=== PATIENT | female | born 1990 | race American Indian/Alaskan Native ===

== ENCOUNTER 2020-04-02 11:16 | Emergency (ER) | payer SELFPAY ==
--- NOTE | 2020-04-02 11:47 | Emergency Department Report ---
Blank Doc - Documentation Documentation: 29-year-old female that presents with abdominal pain with nausea vomiting. 1- This initial assessment/diagnostic orders/clinical plan/ treatment(s) is/are subject to change based on pt's health status, clinical progression and re- assessment by fellow clinical providers in the ED. Further treatment and workup at subsequent clinical provers discretion. Patient/guardians urged not to elope from ED as their condition may be serious if not clinically assessed and managed. 2-labs 3-UA
[2020-04-02 12:45] LABS: Hematocrit 35.8 % (30.3-42.9); Hemoglobin 12.5 gm/dl (10.1-14.3); Mean Corpuscular HGB Conc 35 % (30-34); Mean Corpuscular Volume 92 fl (79-97); Platelet Count 288 K/mm3 (140-440); Red Blood Count 3.89 M/mm3 (3.65-5.03); Red Cell Distribution Width 15.2 % (13.2-15.2)
[2020-04-02 13:07] LABS: Basophils % (Auto) 0.3 % (0.0-1.8); Eosinophils % (Auto) 0.3 % (0.0-4.3); Lymphocytes # (Auto) 1.1 K/mm3 (1.2-5.4); Lymphocytes % (Auto) 12.4 % (13.4-35.0); Monocytes # (Auto) 0.8 K/mm3 (0.0-0.8); Monocytes % (Auto) 9.4 % (0.0-7.3)
[2020-04-02 13:09] LABS: Alanine Aminotransferase 36 units/L (7-56); Albumin 4.5 g/dL (3.9-5); BUN/Creatinine Ratio 10; Blood Urea Nitrogen 8 mg/dL (7-17); Calcium 9.6 mg/dL (8.4-10.2); Hemolysis Index 0
[2020-04-02] MEDS ORDERED: MORPHINE 4 MG/1 ML INJ IV ONE (16:21)
[2020-04-02] MEDS ORDERED: SODIUM CHLORIDE 0.9% 1000 ML 1,000 ML IV ONE (16:21)
[2020-04-02] MEDS ORDERED: ONDANSETRON 4 MG/2 ML INJ IV ONE (16:23)
--- NOTE | 2020-04-02 16:24 | Emergency Department Report ---
ED General Adult HPI - General Chief complaint: Abdominal Pain Stated complaint: RT SIDED PAIN PUI?: No Time Seen by Provider: 04/02/20 11:46 Source: patient, RN notes reviewed Mode of arrival: Ambulatory Limitations: No Limitations - History of Present Illness Initial comments: The patient was evaluated in the emergency department for symptoms described in the history of present illness. He/she was evaluated in the context of the global COVID-19 pandemic, which necessitated consideration that the patient might be at risk for infection with the virus that causes COVID-19. Institutional protocols and algorithms that pertain to the evaluation of patients at risk for COVID-19 are in a state of rapid change based on inform ation released by regulatory bodies including the CDC and federal and state organizations. These policies and algorithms were followed during the patient's care in the emergency department. Please note that these policies, procedures and recommendations changed on a rapid basis. This is a pleasant 29-year-old female. She is not known to myself previously. She is not . Reports distant history of trichomoniasis, discovered incidentally. She presents to the ER today with a complaint of nontraumatic right lower quadrant pain, that started within the past day to day and a half. It does not radiate anywhere. It increases with palpation, decreases with rest, position, and ibuprofen. She has no headache, neck pain, chest pain, shortness of breath, urinary symptoms, gynecologic discharge, she reported nausea and vomiting to the nurse practitioner, to me, she denies nausea and vomiting. She has no fevers or chills. No loss of taste or smell. She is never had pain like this before -: Gradual, days(s) Location: abdomen Radiation: non-radiation Quality: aching Consistency: constant Improves with: medication, rest Worsens with: movement - Related Data Previous Rx's Medication Instructions Recorded Last Taken Type Acetaminophen [Non-Aspirin Extra 500 mg PO Q6HR PRN #30 tablet 04/02/20 Unknown Rx Strength] Ibuprofen [Motrin] 600 mg PO Q8H PRN #30 tablet 04/02/20 Unknown Rx Ondansetron [Zofran Odt] 4 mg PO Q8HR PRN #20 tab.rapdis 04/02/20 Unknown Rx Allergies Allergy/AdvReac Type Severity Reaction Status Date / Time No Known Allergies Allergy Unverified 04/02/20 11:30 ED Review of Systems ROS: Stated complaint: RT SIDED PAIN Other details as noted in HPI Constitutional: denies: fever Eyes: denies: eye discharge ENT: denies: epistaxis Respiratory: denies: cough Cardiovascular: denies: chest pain Genitourinary: denies: dysuria Musculoskeletal: denies: myalgia Neurological: denies: weakness Hematological/Lymphatic: denies: easy bleeding ED Past Medical Hx - Past Medical History Previous Medical History?: No - Surgical History Past Surgical History?: No - Social History Smoking Status: Never Smoker Substance Use Type: None - Medications Home Medications: Home Medications Medication Instructions Recorded Confirmed Last Taken Type Acetaminophen [Non-Aspirin Extra 500 mg PO Q6HR PRN #30 tablet 04/02/20 Unknown Rx Strength] Ibuprofen [Motrin] 600 mg PO Q8H PRN #30 tablet 04/02/20 Unknown Rx Ondansetron [Zofran Odt] 4 mg PO Q8HR PRN #20 tab.rapdis 04/02/20 Unknown Rx ED Physical Exam - General Limitations: No Limitations General appearance: alert, in no apparent distress - Head Head exam: Present: atraumatic, normocephalic - Eye Eye exam: Present: normal appearance, EOMI. Absent: nystagmus - ENT ENT exam: Present: normal exam, normal orophraynx, mucous membranes moist, n ormal external ear exam - Neck Neck exam: Present: normal inspection, full ROM. Absent: tenderness, meningismus - Respiratory Respiratory exam: Present: normal lung sounds bilaterally. Absent: respiratory distress, wheezes, rales, rhonchi, stridor, decreased breath sounds - Cardiovascular Cardiovascular Exam: Present: regular rate, normal rhythm, normal heart sounds. Absent: bradycardia, tachycardia, irregular rhythm, systolic murmur, diastolic murmur, rubs, gallop - GI/Abdominal GI/Abdominal exam: Present: soft, tenderness (There is right lower quadrant tenderness to deep palpation), normal bowel sounds. Absent: distended, guarding , rebound, rigid, pulsatile mass - External exam: Present: normal external exam, other (Chaperoned by nurse Garth Tapia). Absent: bleeding Speculum exam: Present: normal speculum exam. Absent: cervical discharge, vaginal bleeding Bi-manual exam: Present: normal bi-manual exam. Absent: cervical motion tendernes, adnexal tenderness, adnexal mass, uterine enlargement, uterine tenderness - Extremities Exam Extremities exam: Present: normal inspection, full ROM, other (2+ pulses noted in the bilateral upper and lower extremities. There is no palpable cord. n egative Homans sign. Muscular compartments are soft. The pelvis is stable.). Absent: pedal edema, calf tenderness - Back Exam Back exam: Present: normal inspection, full ROM. Absent: tenderness, CVA tenderness (R), CVA tenderness (L), paraspinal tenderness, vertebral tenderness - Neurological Exam Neurological exam: Present: alert, oriented X3, normal gait, other (No facial droop. Tongue midline. Extraocular movements intact bilaterally. Facial sensation intact to light touch in V1, V2, V3 distribution bilaterally. 5 and a 5 strength in 4 extremities. Sensation intact to light touch in 4 extremities.). Absent: motor sensory deficit - Psychiatric Psychiatric exam: Present: normal affect, normal mood - Skin Skin exam: Present: warm, dry, intact, normal color. Absent: rash ED Course Vital Signs 04/02/20 11:30 Temperature 98.5 F Pulse Rate 96 H Respiratory 18 Rate Blood Pressure 148/104 O2 Sat by Pulse 98 Oximetry - Reevaluation(s) Reevaluation #1: 04/02/20 17:04 Differential diagnosis, including but not limited to: Renal colic, appendicitis, pelvic inflammatory disease, ovarian cyst, urinary tract infection, colitis, diverticulitis Assessment and plan: 29-year-old female with right lower quadrant pain and ten derness. She is otherwise afebrile with reassuring vital signs. Laboratory studies reviewed and appreciated. Urinalysis pending at this time We will treat the patient's pain. Perform gynecologic examination. Obtain CT scan of the abdomen pelvis to evaluate for appendicitis, renal colic, and pelvic ultrasound to assess for ovarian cyst/torsion. We will also perform a gynecologic examination. Reassess after initial data points. Have discussed this plan of care with the patient. She verbalized understanding. She is amenable to this plan of care. Reevaluation #2: 04/02/20 18:[address] scan of the abdomen pelvis negative for acute findings. Patient feels improved on repeat examination. Urinalysis reviewed and appreciated. This is a contaminated urine sample. The patient has specifically denied irritative and obstructive urinary symptoms. Pelvic ultrasound pending at this time. ED Medical Decision Making - Lab Data Result diagrams: 04/02/20 12:10 04/02/20 12:10 Vital Signs 04/02/20 11:30 Temperature 98.5 F Pulse Rate 96 H Respiratory 18 Rate Blood Pressure 148/104 O2 Sat by Pulse 98 Oximetry Lab Results 04/02/20 04/02/20 04/02/20 Range/Units 12:10 12:10 12:10 WBC 8.6 (4.5-11.0) K/mm3 RBC 3.89 (3.65-5.03) M/mm3 Hgb 12.5 (10.1-14.3) gm/dl Hct 35.8 (30.3-42.9) % MCV 92 (79-97) fl MCH 32 (28-32) pg MCHC 35 H (30-34) % RDW 15.2 (13.2-15.2) % Plt Count 288 (140-440) K/mm3 Lymph % (Auto) 12.4 L (13.4-35.0) % [place] % (Auto) 9.4 H (0.0-7.3) % Eos % (Auto) 0.3 (0.0-4.3) % Baso % (Auto) 0.3 (0.0-1.8) % Lymph # (Auto) 1.1 L (1.2-5.4) K/mm3 [place] # (Auto) 0.8 (0.0-0.8) K/mm3 Eos # (Auto) 0.0 (0.0-0.4) K/mm3 Baso # (Auto) 0.0 (0.0-0.1) K/mm3 Seg Neutrophils % 77.6 H (40.0-70.0) % Seg Neutrophils # 6.7 (1.8-7.7) K/mm3 Sodium 138 (137-145) mmol/L Potassium 4.3 (3.6-5.0) mmol/L Chloride 103.5 (98-107) mmol/L Carbon Dioxide 25 (22-30) mmol/L Anion Gap 14 mmol/L BUN 8 (7-17) mg/dL Creatinine 0.8 (0.6-1.2) mg/dL Estimated GFR > 60 ml/min BUN/Creatinine Ratio 10 % Glucose 81 (65-100) mg/dL Calcium 9.6 (8.4-10.2) mg/dL Total Bilirubin 0.50 (0.1-1.2) mg/dL AST 23 (5-40) units/L ALT 36 (7-56) units/L Alkaline Phosphatase 67 (35-129) units/L Total Protein 8.4 H (6.3-8.2) g/dL Albumin 4.5 (3.9-5) g/dL Albumin/Globulin Ratio 1.2 % Lipase 26 (13-60) units/L HCG, Qual Negative (Negative) - Radiology Data Radiology results: pending, report reviewed CT scan of the abdomen pelvis with IV contrast negative for acute finding Critical care attestation.: If time is entered above; I have spent that time in minutes in the direct care of this critically ill patient, excluding procedure time. ED Disposition Clinical Impression: Right lower quadrant abdominal pain Is pt being admited?: No Does the pt Need Aspirin: No Condition: Good Instructions: Abdominal Pain (ED), Abdominal Pain, Adult, [id number] Additional Instructions: Take the pain medication, nausea medication as needed and directed. Cultures were sent today, and results will be available in the next 3 to 5 days. Please have a primary care doctor contact the medical records department to obtain culture results. Please follow-up with a primary care doctor or presiding judge within the next 3 to 5 days for recheck up/evaluation. Please return to the emergency room right away with new pain, worsened pain, migration of pain, projectile vomiting, change in mental status, confusion, inability to tolerate liquid feeds, new, worsened or different symptoms not present on the initial emergency room evaluation. Referrals: GILBERTO HUGGINS MD [Staff Physician] - 3-5 Days [facility] [Provider Group] - 3-5 Days
[2020-04-02 17:12] LABS: Bacteria,Urine 1+ /HPF (Negative); Bilirubin,Urine NEG (Negative); Blood,Urine SM (Negative); Color,Urine Yellow (Yellow); Urobilinogen,Urine < 2.0 mg/dL (<2.0)
--- NOTE | 2020-04-02 17:30 | Cat Scan Report ---
CT ABDOMEN AND PELVIS WITH IV CONTRAST INDICATION: Right lower quadrant pain. COMPARISON: None available. TECHNIQUE: All CT scans at this facility use dose modulation, automated exposure control, iterative reconstructi on or weight based dosing, when appropriate, to reduce radiation dose to as low as reasonably achieva ble. FINDINGS: Lung Bases: No significant abnormality. Skeletal System: No acute abnormality. ABDOMEN: Liver: No significant abnormality. Gallbladder: No significant abnormality. Bile Ducts: No significant abnormality. Pancreas: No significant abnormality. Spleen: No significant abnormality. Adrenals: No significant abnormality. Right Kidney: No significant abnormality. Left Kidney: No significant abnormality. Upper GI tract: No significant abnormality. Lymph Nodes: No significant adenopathy. Aorta: No significant abnormality. Additional Findings: No significant abnormality. PELVIS: Colon: No acute abnormality. Urinary Bladder and Distal Ureters: No significant abnormality. Appendix: No significant abnormality. Lymph Nodes: No significant adenopathy. Additional Findings: None. IMPRESSION: 1. No acute process in the abdomen or pelvis. 2. Incidental findings, as above. Signer Name: Ilia Negro MD Signed: 04/02/2020 5:25 PM Workstation Name: [id number]
[2020-04-02] MEDS ORDERED: MORPHINE 2 MG/1 ML INJ ONE (17:55)
[2020-04-02] MEDS ORDERED: MORPHINE 2 MG/1 ML INJ IV PRN (18:02)
[2020-04-02] MEDS ORDERED: KETOROLAC 30 MG/1 ML INJ IV ONE (19:10)
--- NOTE | 2020-04-02 19:55 | Ultrasound Report ---
ULTRASOUND PELVIS, COMPLETE INDICATION: Right-sided pelvic pain COMPARISON: CT abdomen and pelvis earlier today.. TECHNIQUE: Transabdominal imaging was performed. FINDINGS: Uterus: Uterus measures 8.8 x 6.0 x 7.8 cm. Endometrial echo complex measures 3 cm. Right ovary: No significant abnormality. Flow is seen to the right ovary. Left ovary: No significant abnormality. Flow is seen to the left ovary. Additional findings: There is no free fluid in the pelvis. IMPRESSION: 1. Ovaries are unremarkable, no sonographic evidence of torsion. 2. Endometrial echo complex is abnormally thickened at 3 cm (normal is less than 1.5 cm in a premenop ausal patient). Gynecologic follow-up and sonographic follow up at a different point in the patient's cycle are recommended. Signer Name: Ilia Negro MD Signed: 04/02/2020 7:51 PM Workstation Name: [id number]
[2020-04-02 21:44] VITALS: BP 112/65
== END 2020-04-02 21:42 | disposition home or self-care (01) ==
LOC: ED 11:16
DX: R10.31 Right lower quadrant pain (principal); Z79.899 Other long term (current) drug therapy
CPT/HCPCS: 36415; 74177; 80053; 81001; 83690; 84703; 85025; 87086; 87210; 87591; 93975; 96361; 96374; 96375; 99285; J1885; J2270; J2405; J7030; Q9967